=== PATIENT | female | born 1985 ===

== ENCOUNTER 2021-12-16 08:13 | Emergency (ER) | payer SELFPAY ==
[2021-12-16] MEDS ORDERED: Sodium Chloride 0.9% 1,000 ML IV ONE (08:58)
[2021-12-16] MEDS ORDERED: Ondansetron 4 MG/2 ML SDV IVPUSH ONE ×2 (08:58→09:56)
[2021-12-16] MEDS ORDERED: Ketorolac 30 MG/ML SDV IVPUSH ONE (09:00)
[2021-12-16 09:16] LABS: ANION GAP 17.9 mEq/L (7-13); CHLORIDE,CL 105 mmol/L (98-107); SODIUM,NA 142 mmol/L (136-145)
[2021-12-16 09:22] LABS: ESTIMATED GFR 99 mL/min (>=60)
[2021-12-16] MEDS ORDERED: Metoclopramide 10 MG/2 ML SDV IVPUSH ONE (09:33)
[2021-12-16] MEDS ORDERED: fentaNYL 100 MCG/2 ML SDV IVPUSH ONE (09:56)
[2021-12-16 10:17] LABS: METHAMPHETAMINES,URINE NEGATIVE (NEGATIVE)
[2021-12-16 10:18] LABS: AMPHETAMINES,URINE NEGATIVE (NEGATIVE); BARBITURATES,URINE NEGATIVE (NEGATIVE); BENZODIAZEPINE,URINE NEGATIVE (NEGATIVE); MDMA (ECSTASY), URINE NEGATIVE (NEGATIVE); METHADONE,URINE NEGATIVE (NEGATIVE); OPIATES,URINE NEGATIVE (NEGATIVE); OXYCODONE,URINE NEGATIVE (NEGATIVE); PHENCYCLIDINE,URINE NEGATIVE (NEGATIVE); TCA,URINE NEGATIVE (NEGATIVE)
== END 2021-12-16 11:00 | disposition home or self-care (01) ==
LOC: DL.ED 08:13
DX: K52.9 Noninfective gastroenteritis and colitis, unspecified (principal); Z20.822 Contact with and (suspected) exposure to COVID-19
CPT/HCPCS: 36415; 80053; 80305; 81001; 83605; 83735; 85025; 86140; 87635; 96361; 96374; 96375; 96376; 99284; J1885; J2405; J2765; J3010; J7030; U0002